=== PATIENT | female | born 1995 | race Hispanic/Latino ===

== ENCOUNTER 2016-12-29 15:03 | Emergency (ER) | payer MEDICAID, SELFPAY ==
[2016-12-29 15:45] LABS: #Basophils 0.1 thou/uL (0.0-0.2); #Eosinphils 0.1 thou/uL (0.0-0.7); #Lymphocytes 1.7 thou/uL (1.20-3.40); #Monocytes 0.6 thou/uL (0.11-0.59); #Neutrophils 6.2 thou/uL (1.40-6.50); %Basophils 0.9 % (0.0-1.0); %Eosinophils 1.1 % (0.0-10.0); %Lymphocytes 19.4 % (21.0-51.0); %Monocytes 7.3 % (0.0-10.0); Hematocrit 41.3 % (36.0-47.0); Mean Platelet Volume 9.1 fL (7.4-10.4); Red Blood Cell (RBC) Count 4.48 mill/uL (4.20-5.40); White Blood Cell (WBC) Count 8.6 thou/uL (4.8-10.8)
[2016-12-29 16:10] LABS: ALT (SGPT) 16 U/L (8-55); AST (SGOT) 16 U/L (5-34); Alkaline Phosphatase 50 U/L (40-150); Anion Gap 11 mmol/L (10-20); BUN (Urea Nitrogen) 9 mg/dL (7.0-18.7); Bilirubin, Total 0.4 mg/dL (0.2-1.2); Calc. Creatinine Clearance 0 mL/min (70-130); Calcium 10.3 mg/dL (7.8-10.44); Carbon Dioxide 25 mmol/L (22-29); Chloride 101 mmol/L (98-107); Estimated GFR-MDRD Greater than 90; Globulin 3.1 g/dL (2.4-3.5); Protein, Total 7.7 g/dL (6.0-8.3)
[2016-12-29 16:12] LABS: Bilirubin Negative (Negative); Blood, Urine Moderate (Negative); Glucose, Urine (Dipstick) Negative (Negative); Ketone, Urine Negative (Negative); Nitrite Negative (Negative); Protein, Urine (Dipstick) Negative (Neg-Trace); Urobilinogen 0.2 mg/dL (0.2-1.0)
[2016-12-29] MEDS ORDERED: Ondansetron HCl/PF 4 MG/2 ML Vial ONE (16:26)
[2016-12-29] MEDS ORDERED: Acetaminophen 325 MG TAB ONE (16:26)
[2016-12-29] MEDS ORDERED: diphenhydrAMINE HCl 50 MG/ML 1 ML VIAL ONE (16:35)
[2016-12-29 17:01] LABS: Bacteria/HPF 1+ HPF (None Seen); RBC/HPF 0-3 HPF (0-3); WBC/HPF 0-3 HPF (0-3)
[2016-12-29 17:02] LABS: Hyaline Casts/LPF NONE SEEN LPF (0-3 Hyaline)
--- NOTE | 2016-12-29 17:54 | ULT ---
ULTRASOUND LESS THAN 14 WEEKS 12/29/16 Exam includes transabdominal, transvaginal, and vascular duplex with color and spectral doppler imag ing. HISTORY: 21-year-old female with history of vaginal bleeding and . The uterus measures 8.1 x 5.5 x 5.6 cm. The right ovary measures 2.8 x 1.6 x 2.6 cm. The left ovary measures 2.9 x 2.4 x 4.7 cm. There is a fundal intrauterine gestational sac containing a pole and yolk sac. By gestational sac size, gestational age equals 6 weeks, 6 days. By crown-rump length gestational age average approximates 6 weeks, 1 day. heart rate 106 bpm. Vascular duplex demonstrates vascular flow to both ovaries. There is no evidence for significant ret rochorionic hemorrhage. There is some trace cul-de-sac fluid. IMPRESSION: Early viable intrauterine at approximately 6 weeks, 3 days gestation. No evidence for retr ochorionic hemorrhage. No evidence of ovarian torsion. Trace cul-de-sac fluid. POS: [facility]
== END 2016-12-29 19:00 | disposition home or self-care (01) ==
LOC: ERS 15:03
DX: O20.0 Threatened abortion (principal); O99.89 Other specified diseases and conditions complicating pregnancy, childbirth and the puerperium; R51 Headache; Z3A.01 Less than 8 weeks gestation of pregnancy
CPT/HCPCS: 36415; 76856; 80053; 81003; 81015; 84702; 85025; 86900; 86901; 96374; 96375; J1200; J2405